=== PATIENT | female | born 1960 | race Caucasian/White ===

== ENCOUNTER 2021-01-21 11:04 | Emergency (ER) | payer BC ==
[2021-01-21 11:24] VITALS: BP 119/70
== END 2021-01-21 11:57 | disposition home or self-care (01) ==
LOC: ER 11:04
DX: Z02.89 Encounter for other administrative examinations (principal); S83.241A Other tear of medial meniscus, current injury, right knee, initial encounter; X58.XXXA Exposure to other specified factors, initial encounter; Y93.89 Activity, other specified; Y92.89 Other specified places as the place of occurrence of the external cause; Y99.8 Other external cause status
CPT/HCPCS: 99282

== ENCOUNTER 2021-03-05 06:18 | Day surgery (SDC) | payer BC ==
[2021-02-27 16:07] LABS: BASOPHILS % (AUTO) 0.4 % (0-1); EOSINOPHILS # (AUTO) 0.2 X10'3 (0-0.9); EOSINOPHILS % (AUTO) 2.3 % (0-6); LYMPHOCYTES # (AUTO) 2.4 X10'3 (1.1-4.8); LYMPHOCYTES % (AUTO) 31.6 % (21-51); MEAN CORPUSCULAR HEMOGLOBIN 31.9 PG (27.0-31.0); MEAN CORPUSCULAR HGB CONC 33.6 g/dL (33.0-36.5); MEAN PLATELET VOLUME 8.2 FL (7.4-10.4); MONOCYTES # (AUTO) 0.6 X10'3 (0-0.9); MONOCYTES % (AUTO) 8.4 % (2-12); NEUTROPHILS # (AUTO) 4.3 X10'3 (1.8-7.7); NEUTROPHILS % (AUTO) 57.3 % (42-75); PRE OP HEMATOCRIT 41.5 % (35.0-45.0); PRE OP HEMOGLOBIN 13.9 g/dL (12.0-16.0); PRE OP PLATELET COUNT 235 X10'3 (140-440); RED BLOOD COUNT 4.37 X10'6 (4.20-5.60); RED CELL DISTRIBUTION WIDTH 14.1 % (11.5-14.5)
[2021-02-27 16:34] LABS: ALBUMIN 3.9 G/DL (3.4-5.0); ALBUMIN/GLOBULIN RATIO 1.1 (1.1-1.5); ALKALINE PHOSPHATASE 64 IU/L (46-116); BLOOD UREA NITROGEN 5 MG/DL (7-18); BUN/CREATININE RATIO 6.8 (6.6-38.0); CALCIUM 8.8 MG/DL (8.5-10.1); CHLORIDE 104 MMOL/L (99-107); CHOL/HDL RATIO 4.4 (0.00-4.99); CHOLESTEROL 259 MG/DL (0-200); CREATININE 0.73 MG/DL (0.40-0.90); HDL CHOLESTEROL 59 MG/DL (35-60); LDL CHOLESTEROL 155 MG/DL (50-100); PRE OP ALT 26 U/L (30-65); PRE OP ANION GAP 8 (8-16); PRE OP AST 18 U/L (10-37); PRE OP BILIRUB, TOTAL 0.4 MG/DL (0.0-1.0); PRE OP GLUCOSE 97 MG/DL (70-104); PRE OP POTASSIUM 3.6 MMOL/L (3.4-5.1); PRE OP SODIUM 140 MMOL/L (135-145); TOTAL CARBON DIOXIDE 28.1 MMOL/L (24-32); TOTAL PROTEIN 7.3 G/DL (6.4-8.2); TRIGLYCERIDES 215 MG/DL (20-135); eGFR 82 ML/MIN
[~2021-03-05] VITALS: Ht 172.7 cm; Wt 89.6 kg
[2021-03-05] VITALS (8 sets, daily range): BP systolic 113–164; BP diastolic 68–86
[~2021-03-05 06:18] MED LIST: ACET-812 PO; ARIP2TAB20 PO; CELE-85 PO; DULO-31 PO; GABA800T11 PO; LEVO25TA7 PO; LORA-269 PO; TRAM50TA2 PO; TRAZ-256 PO; cefazolin/dext.iso 2gm/100ml IV ONE; famotidine 20mg tablet PO ONE; ringers solution, lacted 1,000 ML IV SCH
[2021-03-05] MEDS ORDERED: ROPIVAcaine 0.5% (5mg/ml) 30ml vial ONE (07:41)
[2021-03-05] MEDS ORDERED: ondansetron/PF 4mg/2ml inj IV PRN (08:15)
[2021-03-05] MEDS ORDERED: meperidine/PF 25mg/ml syringe IV PRN ×3 (08:15)
[2021-03-05] MEDS ORDERED: proCHLORperazine 10 MG/2 ml inj IV PRN (08:15)
[2021-03-05] MEDS ORDERED: ringers solution, lacted 1,000 ML IV SCH (08:15)
[2021-03-05] MEDS ORDERED: morphine 2 MG/ML inj. syringe IV PRN (08:15)
[2021-03-05] MEDS ORDERED: morphine 4 MG/ML inj SYRINge IV PRN (08:15)
[2021-03-05] MEDS ORDERED: midazolam 1 mg/ML 2ml injection ONE (08:29)
[2021-03-05] MEDS ORDERED: propofol inj 20 ML IV ONE (08:30)
[2021-03-05] MEDS ORDERED: fentaNYL/PF 50MCG/1 ML 2ML syringe ONE (08:30)
[2021-03-05] MEDS ORDERED: sevoflurane 250ml liquid IH ONE (09:04)
[2021-03-05] MEDS ORDERED: dexamethasone sod phosphate 4mg/ml inj. ONE (09:04)
[2021-03-05] MEDS ORDERED: BUPIVACAINE liposomal/PF 13.3 MG/ML vial IM ONE (09:26)
[2021-03-05] MEDS ORDERED: BUPIVAcaine/PF 2.5mg/ml (0.25%) 10ml vial ONE (09:31)
--- NOTE | 2021-03-05 09:55 | NUR ---
ADMITTED TO PACU FROM OR ACCOMPANIED BY ANESTHESIA. INTIAL PHYSICAL ASSESSMENT DONE AND RECORDED. REPORT RECEIVED FROM ANESTHESIA.
[2021-03-05] MEDS ORDERED: HYDROcodone/acetaminophen 10/325mg tab PO ONE (10:15)
--- NOTE | 2021-03-05 11:00 | NUR ---
DISCHARGE CRITERIA MET, DISCHARGE INSTRUCTIONS GIVEN, DEMONSTRATES VERBAL UNDERSTANDING. DISCHARGED HOME IN GOOD CONDITION.
== END 2021-03-05 11:00 | disposition home or self-care (01) ==
LOC: PAS 06:18
PROVIDERS: ATTEND Orthopaedic Surgery
DX: S83.231A Complex tear of medial meniscus, current injury, right knee, initial encounter (principal); M65.861 Other synovitis and tenosynovitis, right lower leg; M23.41 Loose body in knee, right knee; M17.11 Unilateral primary osteoarthritis, right knee; F32.9 Major depressive disorder, single episode, unspecified; E03.9 Hypothyroidism, unspecified; Z85.3 Personal history of malignant neoplasm of breast; Z72.89 Other problems related to lifestyle; Z20.822 Contact with and (suspected) exposure to COVID-19; Z79.899 Other long term (current) drug therapy; Z87.891 Personal history of nicotine dependence; Z90.710 Acquired absence of both cervix and uterus; Z98.890 Other specified postprocedural states; X58.XXXA Exposure to other specified factors, initial encounter; Y93.89 Activity, other specified; Y92.89 Other specified places as the place of occurrence of the external cause; Y99.8 Other external cause status
CPT/HCPCS: 29881; 36415; 80053; 80061; 82948; 84443; 85025; 87635; 93005; C9290; C9803; J1100; J2250; J2704; J3010; J3490; Z7506; Z7508; Z7512; A4215; A4618; A6449; A7000; J2795; J7120

== ENCOUNTER 2023-03-04 13:25 | Outpatient (CLI) | payer BC ==
[~2023-03-04 13:25] MED LIST changes: -cefazolin/dext.iso 2gm/100ml IV ONE; -famotidine 20mg tablet PO ONE; -ringers solution, lacted 1,000 ML IV SCH
[2023-03-04 14:27] LABS: CLARITY,URINE CLEAR (Clear); COLOR,URINE YELLOW (Yellow); GLUCOSE, URINE NEGATIVE (Neg); KETONES,URINE NEGATIVE (Neg); LEUKOCYTE ESTERASE ,URINE NEGATIVE (Neg); NITRITES, URINE NEGATIVE (Neg); OCCULT BLOOD,URINE NEGATIVE (Neg); PROTEIN,URINE NEGATIVE (Neg); UROBILINOGEN,URINE 0.2 E.U/dL (0.2-1.0)
[2023-03-04 14:31] LABS: BASOPHILS % (AUTO) 0.6 % (0-1); EOSINOPHILS # (AUTO) 0.1 X10'3 (0-0.9); EOSINOPHILS % (AUTO) 1.8 % (0-6); HEMATOCRIT 39.6 % (35.0-45.0); HEMOGLOBIN 13.1 g/dl (12.0-16.0); LYMPHOCYTES # (AUTO) 2.2 X10'3 (1.1-4.8); LYMPHOCYTES % (AUTO) 36.1 % (21-51); MEAN CORPUSCULAR HEMOGLOBIN 31.2 PG (27.0-31.0); MEAN CORPUSCULAR HGB CONC 33.2 g/dL (33.0-36.5); MEAN PLATELET VOLUME 8.1 FL (7.4-10.4); MONOCYTES # (AUTO) 0.5 X10'3 (0-0.9); MONOCYTES % (AUTO) 8.9 % (2-12); NEUTROPHILS # (AUTO) 3.2 X10'3 (1.8-7.7); NEUTROPHILS % (AUTO) 52.6 % (42-75); PLATELET COUNT 209 X10'3 (140-440); RED BLOOD COUNT 4.21 X10'6 (4.20-5.60); RED CELL DISTRIBUTION WIDTH 14.4 % (11.5-14.5); WHITE BLOOD COUNT 6.1 X10'3 (4.5-11.0)
[2023-03-04 14:46] LABS: ALANINE AMINOTRANSFERASE 31 U/L (12-78); ALBUMIN 3.8 G/DL (3.4-5.0); ALBUMIN/GLOBULIN RATIO 1.1 (1.1-1.5); ALKALINE PHOSPHATASE 54 IU/L (46-116); ANION GAP 9 (8-16); ASPARTATE AMINO TRANSFERASE 22 U/L (10-37); BILIRUBIN,TOTAL 0.4 MG/DL (0.1-1.0); BLOOD UREA NITROGEN 8 MG/DL (7-18); BUN/CREATININE RATIO 10.5 (10.0-20.0); CALCIUM 8.9 MG/DL (8.5-10.1); CHLORIDE 104 MMOL/L (99-107); CHOL/HDL RATIO 5.5 (0.00-4.99); CHOLESTEROL 236 MG/DL (0-200); CREATININE 0.76 MG/DL (0.40-0.90); GLUCOSE 96 MG/DL (70-104); HDL CHOLESTEROL 43 MG/DL (35-60); LDL CHOLESTEROL 133 MG/DL (50-100); POTASSIUM 3.6 MMOL/L (3.5-5.1); SODIUM 142 MMOL/L (135-145); TOTAL CARBON DIOXIDE 29.2 MMOL/L (24-32); TOTAL PROTEIN 7.3 G/DL (6.4-8.2); TRIGLYCERIDES 219 MG/DL (20-135); UA COLLECTION TYPE CLN CATCH MIDSTREAM; eGFR 77 ML/MIN
== END 2023-03-04 23:59 | disposition home or self-care (01) ==
LOC: LAB 13:25
PROVIDERS: ATTEND Family Medicine
DX: E78.5 Hyperlipidemia, unspecified (principal); E55.9 Vitamin D deficiency, unspecified; E03.9 Hypothyroidism, unspecified
CPT/HCPCS: 36415; 80053; 80061; 81003; 82306; 82652; 84439; 84443; 85025

== ENCOUNTER 2024-03-29 09:20 | Outpatient (CLI) | payer BC ==
[~2024-03-29 09:20] MED LIST changes: -ARIP2TAB20 PO; +ARIP2TAB67 PO; +CELE-127 PO; -CELE-85 PO
[2024-03-29 10:13] LABS: BILIRUBIN,URINE NEGATIVE (Neg); CLARITY,URINE SLIGHTLY CLOUDY (Clear); COLOR,URINE YELLOW (Yellow); GLUCOSE, URINE NEGATIVE (Neg); KETONES,URINE NEGATIVE (Neg); LEUKOCYTE ESTERASE ,URINE NEGATIVE (Neg); NITRITES, URINE NEGATIVE (Neg); OCCULT BLOOD,URINE NEGATIVE (Neg); PROTEIN,URINE NEGATIVE (Neg); UROBILINOGEN,URINE 0.2 E.U/dL (0.2-1.0)
[2024-03-29 10:15] LABS: BASOPHILS % (AUTO) 0.4 % (0-1); EOSINOPHILS # (AUTO) 0.1 X10'3 (0-0.9); EOSINOPHILS % (AUTO) 2.2 % (0-6); HEMATOCRIT 37.6 % (35.0-45.0); HEMOGLOBIN 12.3 g/dl (12.0-16.0); LYMPHOCYTES # (AUTO) 1.8 X10'3 (1.1-4.8); LYMPHOCYTES % (AUTO) 30.7 % (21-51); MEAN CORPUSCULAR HEMOGLOBIN 30.6 PG (27.0-31.0); MEAN CORPUSCULAR HGB CONC 32.7 g/dL (33.0-36.5); MEAN CORPUSCULAR VOLUME 93.4 FL (78-98); MEAN PLATELET VOLUME 8.6 FL (7.4-10.4); MONOCYTES # (AUTO) 0.5 X10'3 (0-0.9); MONOCYTES % (AUTO) 8.5 % (2-12); NEUTROPHILS # (AUTO) 3.4 X10'3 (1.8-7.7); NEUTROPHILS % (AUTO) 58.2 % (42-75); PLATELET COUNT 221 X10'3 (140-440); RED BLOOD COUNT 4.02 X10'6 (4.20-5.60); RED CELL DISTRIBUTION WIDTH 13.7 % (11.5-14.5); WHITE BLOOD COUNT 5.8 X10'3 (4.5-11.0)
[2024-03-29 10:19] LABS: INR 1.1 INR; PROTHROMBIN TIME 11.3 SECONDS (9.0-12.0); UA COLLECTION TYPE NON-SPECIFIED
[2024-03-29 10:20] LABS: MUCUS STRANDS MODERATE /LPF (Neg); SQUAMOUS EPITHELIAL CELL,UR MODERATE /LPF (FEW)
[2024-03-29 10:21] LABS: HYALINE CASTS 0-3 /LPF (NEGATIVE)
[2024-03-29 10:22] LABS: AMORPHOUS URATES 1+; BACTERIA,URINE FEW /HPF (Neg); WBC,URINE 0-4 /HPF (0-4)
[2024-03-29 10:31] LABS: ALANINE AMINOTRANSFERASE 29 U/L (12-78); ALBUMIN 3.8 G/DL (3.4-5.0); ALBUMIN/GLOBULIN RATIO 1.1 (1.1-1.5); ALKALINE PHOSPHATASE 43 IU/L (46-116); ANION GAP 10 (8-16); ASPARTATE AMINO TRANSFERASE 19 U/L (10-37); BILIRUBIN,TOTAL 0.4 MG/DL (0.1-1.0); BLOOD UREA NITROGEN 10 MG/DL (7-18); BUN/CREATININE RATIO 14.7 (10.0-20.0); CALCIUM 8.9 MG/DL (8.5-10.1); CHLORIDE 103 MMOL/L (99-107); CHOLESTEROL 142 MG/DL (0-200); CREATININE 0.68 MG/DL (0.40-0.90); GLUCOSE 96 MG/DL (70-104); HDL CHOLESTEROL 72 MG/DL (35-60); LDL CHOLESTEROL 57 MG/DL (50-100); POTASSIUM 3.9 MMOL/L (3.5-5.1); SODIUM 141 MMOL/L (135-145); THYROID STIMULATING HORMONE 0.68 ulU/ml (0.34-4.50); TOTAL CARBON DIOXIDE 27.7 MMOL/L (24-32); TOTAL PROTEIN 7.3 G/DL (6.4-8.2); TRIGLYCERIDES 103 MG/DL (20-135); eGFR 88 ML/MIN
== END 2024-03-29 23:59 | disposition home or self-care (01) ==
LOC: LAB 09:20
PROVIDERS: ATTEND Physician Assistant
DX: Z01.812 Encounter for preprocedural laboratory examination (principal); E03.9 Hypothyroidism, unspecified; E78.5 Hyperlipidemia, unspecified
CPT/HCPCS: 36415; 80053; 80061; 81001; 84436; 84443; 85025; 85610

== ENCOUNTER 2025-04-22 18:32 | Emergency (ER) | payer BC ==
[~2025-04-22 18:32] MED LIST changes: +GABA-1555 PO; -GABA800T11 PO
--- NOTE | 2025-04-22 19:23 | Physician Documentation ---
History of Present Illness ~ Chief Complaint: Rash Stated Complaint: SHINGLES Time Seen by MD: 18:52 HPI Patient is a 64-year-old female that presents to the emergency department for evaluation of what appears to be a herpetic rash along right-sided dermatomes consistent with shingles. Patient reports quant essential numbness tingling itchiness along the vesicular rash. Patient reports that she has had the symptoms for 24 hours. 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 Patient reports that she currently takes gabapentin so she will continue taking the gabapentin along with acyclovir that we will prescribe today. Medication Reconciliation Allergies: Coded Allergies: No Known Allergies (Unverified , 02/27/21) Scheduled Aripiprazole (Aripiprazole), 1 TAB PO QAM, (Reported) Celecoxib (Celecoxib), 1 CAP PO DAILY, (Reported) Duloxetine Hcl* (Cymbalta*), 3 CAP PO DAILY, (Reported) Gabapentin (Gabapentin), 3 TAB PO HS, (Reported) Levothyroxine Sodium (Levothyroxine Sodium), 1 TAB PO DAILY, (Reported) Lorazepam (Ativan), 1 TAB PO HS, (Reported) Scheduled PRN Acetaminophen (Tylenol Extra Strength), 2 TABLET PO Q6H PRN for pain, (Reported) Tramadol Hcl (Tramadol Hcl), 1 TAB PO Q6H PRN for pain, (Reported) Trazodone HCl (Trazodone HCl), 2 TAB PO HS PRN for pain, (Reported) Past Medical History Past Medical History: No Pertinent History Review of Systems ROS As stated above in the HPI, otherwise all systems are reviewed and negative. Physical Exam Vital Signs: Temperature: 96.8, Source: Temporal, Heart Rate: 95, Respiratory Rate: 15, BP: 169/86, Pulse Oximetry: 95 Physical Exam VITALS: Reviewed and as above. GENERAL: Alert, no apparent distress. HEENT: Normocephalic, atraumatic, PERRL, EOMI, dry mucosa, no erythema, no evidence of shingles noted to the face or around the eyes at this time. RESPIRATORY: Lungs clear, normal breath sounds, no respiratory distress. CHEST: No accessory muscle use, no retractions CV: Regular rate, rhythm, no edema, no murmur, No: JVD GI: Soft, non-tender, bowels sounds present, no rebound, guarding, or rigidity BACK: No CVA tenderness, or swelling MUSCULOSKELETAL No deformities, no edema SKIN: Warm and dry, essential herpetic rash noted along dermatome plane of the right thoracic region. NEURO: Oriented x4, No motor or sensory deficit PSYCH: Normal mood and affect, no agitation Progress Results/Orders Results/Orders Completed Orders - TARSHA BOX Collins SANCHEZ Acyclovir 200mg Capsule (Zovirax Capsule (04/22/25 18:55) Gabapentin Capsule (Neurontin Capsule) (04/22/25 18:55) Medications Received in ER Medications (Trade) Dose Ordered Sig/Valerie Route PRN Reason Start Time Stop Time Status Last Admin Dose Admin (Zovirax capsule) 800 mg ONCE ONCE PO 04/22/25 18:55 04/22/25 18:56 DC 04/22/25 19:12 800 MG (Neurontin capsule) 400 mg NOW ONCE PO 04/22/25 18:55 04/22/25 18:56 DC 04/22/25 19:06 400 MG Vital Signs 04/22/25 18:49 Temp 96.8 Pulse 95 Resp 15 B/P (MAP) 169/86 Pulse Ox 95 Medical Decision Making Findings This patient who presents with rash consistent with shingles. History and exam findings not consistent with dangerous etiologies of rash such as SJS/TEN, or secondary dangerous causes such as petechial rashes from thrombocytopenia or rickettsial infections. Rash does not appear urticarial with no signs of anaphylaxis either. Plan at this time is to treat the patient for shingles with acyclovir for 7-10 days and gabapentin for discomfort. Educated patient on the need to return emergently if herpetic rash appears around her eyes or on her face close to her eyes. Follow up with your primary care provider. Return to the emergency department with any worsening or recurrent symptoms or any additional concerning symptoms that we discussed here today i.e. fever chills nausea vomiting herpetic rash or lesion around the eyes her close to the eyes extreme lethargy headaches nausea vomiting or any other concerning symptoms. Follow up with this patient tomorrow to see if she has additional needs regarding an increase in her gabapentin dose or anything additional at that time. Differential Dx:Considerations: Include: Abscess, AIDS/HIV, Anthrax (cutaneous), Atopic dermatitis, Candidiasis, Contact dermatitis, Drug reaction, Erythema multiforme, Erysipelas, Gangrene, Herpes zoster, Herpes simplex, Hidradenitis suppurativa, Impetigo, Intertrigo, Lymes disease, Molluscum contagiosum, Osteomyelitis, Pediculosis, Pityriasis rosea, Psoriaisis, RMSF, Rosacea, Scabies, Scarlet fever, Tinea, Urticaria, Varicella, Viral exanthema, Other Departure Disposition: 01 HOME / SELF CARE / HOMELESS Impression: Primary Impression: Shingles Additional Impressions: Rash Pain Itching Discharge Instructions: Shingles, VIS, Recombinant Zoster (Shingles) Vaccine - CDC (08/29/2021) Additional Instructions: This patient who presents with rash consistent with shingles. History and exam findings not consistent with dangerous etiologies of rash such as SJS/TEN, or secondary dangerous causes such as petechial rashes from thrombocytopenia or rickettsial infections. Rash does not appear urticarial with no signs of anaphylaxis either. Plan at this time is to treat the patient for shingles with acyclovir for 7-10 days and gabapentin for discomfort. Educated patient on the need to return emergently if herpetic rash appears around her eyes or on her face close to her eyes. Follow up with your primary care provider. Return to the emergency department with any worsening or recurrent symptoms or any additional concerning symptoms that we discussed here today i.e. fever chills nausea vomiting herpetic rash or lesion around the eyes her close to the eyes extreme lethargy headaches nausea vomiting or any other concerning symptoms. Follow up with this patient tomorrow to see if she has additional needs regarding an increase in her gabapentin dose or anything additional at that time. Tylenol ibuprofen as needed for discomfort. Please follow up with the primary care provider. Please return to the emergency department if any worsening or recurrent symptoms or any additional concerning symptoms that we discussed here today. Referrals: NO PRIMARY CARE PROVIDER (PCP) Prescriptions Acyclovir* (Zovirax*) 800 Mg Tablet 800 MG PO 5XD for 10 Days, #50 TAB Prov: TARSHA BOX 04/22/25 Education Educated: Patient Educated regarding: diagnosis, treatment, need for follow up Signature Scribe Signature: A Attestation: Scribed for Tarsha Box by LAURA Casillas . 04/22/25 19:26 TARSHA BOX Apr 22, 2025 19:23
[2025-04-22] MEDS ORDERED: ACYC-129 PO (19:25)
[2025-04-22 19:36] VITALS: BP 165/84; PULSE 90; RESP 18; TEMP 98.6; O2SAT 99
== END 2025-04-22 19:38 | disposition home or self-care (01) ==
LOC: ER 18:32
DX: B02.9 Zoster without complications (principal); L29.9 Pruritus, unspecified
CPT/HCPCS: 99283

== ENCOUNTER 2025-05-13 09:55 | Emergency (ER) | payer OTHER, BC ==
[~2025-05-13] VITALS: Ht 172.7 cm; Wt 90.0 kg
[2025-05-13 10:02] VITALS: BP 123/80; PULSE 87; RESP 16; TEMP 98.6; O2SAT 99
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
[2025-05-13] MEDS ORDERED: AMOX-580 PO (17:49)
== END 2025-05-13 18:03 | disposition home or self-care (01) ==
LOC: ER 09:56
DX: S61.452A Open bite of left hand, initial encounter (principal); Z79.899 Other long term (current) drug therapy; Y09 Assault by unspecified means; Y93.89 Activity, other specified; Y92.89 Other specified places as the place of occurrence of the external cause; Y99.8 Other external cause status
CPT/HCPCS: 99283; J7030

== ENCOUNTER 2025-06-25 09:40 | Outpatient (CLI) | payer BC ==
[2025-06-25 10:17] LABS: MEAN PLATELET VOLUME 7.6 FL (7.4-10.4); RED CELL DISTRIBUTION WIDTH 14.5 % (11.5-14.5)
[2025-06-25 10:38] LABS: CHOL/HDL RATIO 2.5 (0.00-4.99); CREATININE 0.73 MG/DL (0.40-0.90); LDL CHOLESTEROL 75 MG/DL (50-100); TOTAL CARBON DIOXIDE 29.5 MMOL/L (24-32); eGFR 81 ML/MIN
[2025-06-26 08:12] LABS: THYROXINE (T4) 6.7 ug/dL (4.5-12.0)
== END 2025-06-25 23:59 | disposition home or self-care (01) ==
LOC: LAB 09:40
PROVIDERS: ATTEND Physician Assistant
DX: E78.5 Hyperlipidemia, unspecified (principal); R73.9 Hyperglycemia, unspecified; E55.9 Vitamin D deficiency, unspecified; R53.83 Other fatigue
CPT/HCPCS: 36415; 80053; 80061; 82306; 82607; 82746; 83036; 84436; 84443; 85025